=== PATIENT | female | born 2005 | race Caucasian/White ===

== ENCOUNTER 2023-12-04 08:51 | Emergency (ER) | payer MEDICAID ==
[~2023-12-04] VITALS: Ht 160 cm; Wt 77.1 kg
[2023-12-04 08:59] VITALS: BP 144/72; PULSE 104; RESP 20; TEMP 99.3; O2SAT 98
[2023-12-04] MEDS ORDERED: ROB PO (09:21)
[2023-12-04] MEDS ORDERED: ACET-2619 PO (09:21)
[2023-12-04] MEDS ORDERED: PRED20TA5 PO (09:21)
[2023-12-04 09:27] VITALS: PULSE 98; RESP 20; O2SAT 98
== END 2023-12-04 09:27 | disposition home or self-care (01) ==
LOC: MED 08:51
DX: J06.9 Acute upper respiratory infection, unspecified (principal); Z79.899 Other long term (current) drug therapy; Z91.013 Allergy to seafood
CPT/HCPCS: 99283